=== PATIENT | female | born 1950 ===

== ENCOUNTER 2022-02-07 13:16 | Oncology outpatient (recurring) (ONCR) | payer MEDICARE, SELFPAY | END 2022-03-07 23:59 | disposition home or self-care (01) | PROVIDERS: Visit Provider Internal Medicine Hematology & Oncology | DX: C73 Malignant neoplasm of thyroid gland (principal); C77.8 Secondary and unspecified malignant neoplasm of lymph nodes of multiple regions; C78.02 Secondary malignant neoplasm of left lung | CPT/HCPCS: 80503; 88342 ==